=== PATIENT | female | born 1940 | race Hispanic/Latino ===

== ENCOUNTER → 2024-03-29 | Outpatient (CLI) | payer MEDICARE ==
--- NOTE | 2024-03-29 14:14 | HMCIMG ---
LUMBAR W FLEXION/EXTENSION REASON: LUMBAR STENOSIS WITH NEUROGENIC CLAUDICATION, SCOLIOSIS COMPARISON: None TECHNIQUE: 4 lumbar spine views were obtained including flexion and extension. FINDINGS: There is 70% inferior and endplate compression deformity of the L1 vertebral body. There is 30% inferior endplate compression deformity of L3. There are no retropulsed fragments. Interspace heights appear preserved. There is normal posterior vertebral body alignment. Flexion-extension views were obtained. There is no change in posterior vertebral body alignment on flexion and extension views. IMPRESSION: 1. 70% inferior endplate compression of L1, 30% inferior endplate compression of L3, no retropulsed fragments. 2. No subluxation on flexion or extension views.
--- NOTE | 2024-03-29 16:57 | HMCIMG ---
Exam: Scoliosis survey 6 views Reason: Scoliosis. AP views are underexposed. There is mild S-shaped thoracolumbar scoliosis, 10 degrees to the right in the upper thoracic spine, 10 degrees to the left at the thoracolumbar junction. Lateral views show 50% compression deformity of the L3 vertebral body. Remaining thoracic and lumbar vertebral bodies appear intact. Alignment is normal and the lateral view. IMPRESSION: 1. Mild S-shaped thoracolumbar scoliosis. 2. 50% compression deformity of the L3 3 vertebral body.
== END | disposition home or self-care (01) ==
LOC: RAH 12:06
PROVIDERS: ATTEND Physical Medicine & Rehabilitation
DX: M41.85 Other forms of scoliosis, thoracolumbar region (principal); M43.8X6 Other specified deforming dorsopathies, lumbar region; M48.062 Spinal stenosis, lumbar region with neurogenic claudication
CPT/HCPCS: 72082; 72114

== ENCOUNTER → 2024-04-06 | Outpatient (CLI) | payer MEDICARE ==
--- NOTE | 2024-04-06 12:30 | HMCIMG ---
Exam Type: MRI OF THE LUMBAR SPINE WITHOUT GADOLINIUM Clinical Information: M48.062 Spinal stenosis, lumbar region with neurogenic claudication Comparison: None Technique: Sagittal T1 and T2 FSE, Sagittal STIR and Sagittal proton density images were completed through the lumbosacral spine. Axial T1, T2 and proton density images were also acquired. FINDINGS: There is adequate alignment of the lumbar spine. No fractures or dislocations are identified. Vertebral body height and disc height is preserved at all levels. The bone marrow signal is normal for age. The spinal canal contents are preserved. The conus terminates at a normal level at T12 to L2. The paraspinal muscles and other tissues show no significant abnormalities. Spondylitic and degenerative changes are seen. There is a mild chronic compression fracture involving the inferior endplate of L1 and there is an inferior endplate compression fracture which appears acute hepatic bulging. The L3 vertebral body. Evaluation of the lumbar spine by level: T12-L1: There is no spinal canal stenosis. No disc herniation or bulge is noted. There is no neural foraminal stenosis, impingement, or narrowing. L1-L2, L2-3, 3-4, L4-5 and L5-S1: Broad-based disc protrusion causing bilateral neural foraminal narrowing and nerve root impingement as well as mild spinal canal stenosis. IMPRESSION: Multilevel disc protrusions. Acute and chronic compression fractures as noted.
== END | disposition home or self-care (01) ==
LOC: RAH 11:37
PROVIDERS: ATTEND Physical Medicine & Rehabilitation
DX: M48.56XA Collapsed vertebra, not elsewhere classified, lumbar region, initial encounter for fracture (principal); M51.27 Other intervertebral disc displacement, lumbosacral region; M48.07 Spinal stenosis, lumbosacral region; R07.9 Chest pain, unspecified; R06.00 Dyspnea, unspecified; M48.062 Spinal stenosis, lumbar region with neurogenic claudication
CPT/HCPCS: 72148